=== PATIENT | male | born 1970 | race Caucasian/White ===

== ENCOUNTER 2021-03-15 06:14 | Observation (INO) ==
[2021-03-15] MEDS ORDERED: Naloxone 0.4 MG/ML INJ IVP PRN (09:16)
[2021-03-15] MEDS ORDERED: *HR* HYDROcodone/Acet 5/325 mg TABLET PO PRN (09:16)
[2021-03-15] MEDS ORDERED: Ondansetron 4 MG/2 ML VIAL IVP PRN (09:16)
[2021-03-15] MEDS ORDERED: Haloperidol Lactate 5 MG/ML VIAL IVP PRN (09:19)
[2021-03-15 09:51] LABS: Basophils % 0.6 %; Mean Platelet Volume 10.9 fL (9.4-12.4)
[2021-03-15 09:53] LABS: Eosinophils # 0.1 K/mcL (0.0-0.6); Eosinophils % 1.5 %; Hematocrit 44.7 % (37.5-50.1); Immature Granulocytes % 0.5 % (0-4); Immature Platelets 5.9 % (1.1-6.1); Lymphocytes # 1.5 K/mcL (0.6-4.6); Lymphocytes % 22.4 %; Mean Corpuscular HGB Conc 33.6 g/dL (31.6-35.5); Mean Corpuscular Hemoglobin 30.9 pg (28.0-33.3); Monocytes # 0.5 K/mcL (0.0-1.3); Monocytes % 7.8 %; Neutrophils # 4.4 K/mcL (1.6-8.9); Platelet Count 146 K/mcL (140-400); Red Blood Count 4.86 M/mcL (4.19-5.50); Red Cell Distribution Width 12.5 % (11.5-14.5); Segmented Neutrophils % 67.2 %; White Blood Count 6.6 K/mcL (4.3-11.1)
[2021-03-15 10:20] LABS: INR 1.2; Prothrombin Time 13.5 Seconds (9.4-12.1)
[2021-03-15 10:23] LABS: Alanine Aminotransferase 24 Units/L (7-52); Albumin 4.5 g/dL (3.5-5.7); Albumin/Globulin Ratio 1.6 (1.1-2.2); Alkaline Phosphatase 42 Units/L (34-104); Aspartate Amino Transferase 41 Units/L (13-39); BUN/Creatinine Ratio 11 (6-26); Bilirubin,Total 1.7 mg/dL (0.3-1.0); Blood Urea Nitrogen 12 mg/dL (6-20); Calcium 9.1 mg/dL (8.6-10.3); Carbon Dioxide 22 mEq/L (23-29); Chloride 105 mEq/L (98-107); Globulin 2.8 g/dL (2.4-3.5); Glucose 119 mg/dL (70-105); Osmolality,Calculated 287 (280-300); Phosphorous 3.2 mg/dL (2.7-4.5); Potassium 4.3 mEq/L (3.5-5.1); Sodium 138 mEq/L (136-145); Total Protein 7.3 g/dL (6.4-8.9); Troponin I < 0.03 ng/mL (< 0.04); eGFR For African Americans > 60 (> 60); eGFR For Non-African Americans > 60 (> 60)
[2021-03-15 10:24] LABS: Activated Partial Thrombo Time 20.6 Seconds (26.0-36.0)
[2021-03-15] MEDS: Ringers Solution, Lactated 1,000 ML IVC SCH ×2 (10:43→20:44)
[2021-03-15] MEDS ORDERED: hydrOXYzine pamoate 25 MG CAPSULE PO PRN (13:59)
[2021-03-15] MEDS: Metoprolol XL (24 HR) Succ 25 MG TAB.ER.24H PO SCH (15:18)
[2021-03-15 15:57] LABS: Bilirubin,Urine Negative (Negative); Blood,Urine Negative (Negative); Clarity,Urine Clear (Clear); Color,Urine Light-Yellow (Yellow); Glucose,Urine (UA) Normal (Normal); Ketones,Urine Negative (Negative); Leukocyte Esterase,Urine Negative (Negative); Nitrite,Urine Negative (Negative); Protein,Urine Negative (Neg-Trace); Specific Gravity,Urine 1.011 (1.010-1.025)
[2021-03-15 16:19] LABS: Amphetamine Screen,Urine Positive ng/mL (Cutoff=1000); Barbiturate Screen,Urine Negative ng/mL (Cutoff=200); Benzodiazepines Screen,Urine Negative ng/mL (Cutoff=200); Cannabinoid Screen,Urine Negative ng/mL (Cutoff = 50); Cocaine Screen,Urine Positive ng/mL (Cutoff= 300); Opiate Screen,Urine Negative ng/mL (Cutoff=300); Phencyclidine Screen,Urine Negative ng/mL (Cutoff=25)
[2021-03-15] MEDS: *HR* Heparin 5,000 UNIT/ML VIAL SQ SCH (16:57)
[2021-03-15] MEDS: traZODone 50 MG TABLET PO SCH (20:40)
[2021-03-16] MEDS: *HR* Heparin 5,000 UNIT/ML VIAL SQ SCH ×2 (05:22→16:49)
[2021-03-16] MEDS: Ringers Solution, Lactated 1,000 ML IVC SCH ×2 (09:14→20:00)
[2021-03-16] MEDS: Aspirin 325 MG TABLET PO SCH (14:39)
[2021-03-16] MEDS: Gabapentin 300 MG CAPSULE PO SCH ×2 (14:39→20:01)
[2021-03-16] MEDS: Metoprolol XL (24 HR) Succ 25 MG TAB.ER.24H PO SCH (19:53)
[2021-03-16] MEDS: traZODone 50 MG TABLET PO SCH (20:01)
[2021-03-17 05:11] LABS: Basophils % 0.4 %; Eosinophils # 0.1 K/mcL (0.0-0.6); Eosinophils % 2.6 %; Hematocrit 39.1 % (37.5-50.1); Hemoglobin 13.6 g/dL (12.9-16.9); Immature Granulocytes % 0.2 % (0-4); Lymphocytes # 1.6 K/mcL (0.6-4.6); Lymphocytes % 31.9 %; Mean Corpuscular HGB Conc 34.8 g/dL (31.6-35.5); Mean Corpuscular Hemoglobin 31.3 pg (28.0-33.3); Mean Corpuscular Volume 89.9 fL (83.0-100.0); Mean Platelet Volume 10.1 fL (9.4-12.4); Monocytes # 0.3 K/mcL (0.0-1.3); Monocytes % 6.7 %; Platelet Count 185 K/mcL (140-400); Red Blood Count 4.35 M/mcL (4.19-5.50); Red Cell Distribution Width 12.1 % (11.5-14.5); Segmented Neutrophils % 58.2 %; White Blood Count 5.1 K/mcL (4.3-11.1)
[2021-03-17 05:30] LABS: BUN/Creatinine Ratio 10 (6-26); Blood Urea Nitrogen 10 mg/dL (6-20); Calcium 8.8 mg/dL (8.6-10.3); Carbon Dioxide 27 mEq/L (23-29); Chloride 108 mEq/L (98-107); Glucose 104 mg/dL (70-105); Osmolality,Calculated 291 (280-300); Potassium 3.8 mEq/L (3.5-5.1); Sodium 141 mEq/L (136-145); eGFR For African Americans > 60 (> 60); eGFR For Non-African Americans > 60 (> 60)
[2021-03-17] MEDS: Ringers Solution, Lactated 1,000 ML IVC SCH (05:42)
[2021-03-17] MEDS: *HR* Heparin 5,000 UNIT/ML VIAL SQ SCH (05:42)
[2021-03-17 05:55] LABS: Estimated Average Glucose 126 mg/dl
[2021-03-17] MEDS: Gabapentin 300 MG CAPSULE PO SCH (07:16)
[2021-03-17] MEDS: Aspirin 325 MG TABLET PO SCH (07:16)
[2021-03-17] MEDS ORDERED: Pyridoxine (B-6) 50 MG TABLET PO SCH (09:00)
[2021-03-17 15:19] VITALS: BP 119/85
== END 2021-03-17 15:39 | disposition home or self-care (01) ==
LOC: 3ANU → SUATTDRO 08:58 → 3ANU 23:00
PROVIDERS: ADMIT Internal Medicine; ATTEND Family Medicine

== ENCOUNTER 2021-12-31 13:08 | Inpatient (IN) ==
[2021-12-31] MEDS ORDERED: Naloxone 0.4 MG/ML INJ IVP PRN (17:59)
[2021-12-31] MEDS ORDERED: Melatonin 3 MG TABLET PO PRN (17:59)
[2021-12-31] MEDS ORDERED: Mag Hydrox/Al Hydrox/Simeth 30 ML UDC PO PRN (17:59)
[2021-12-31] MEDS ORDERED: Ondansetron 4 MG/2 ML VIAL IVP PRN (17:59)
[2021-12-31] MEDS ORDERED: Perflutren Lipid Microsphere 1.3 ML in 0.9 % Sodium Chloride 8.7 ML IVP PRN (18:09)
[2021-12-31] MEDS ORDERED: Metoprolol XL (24 HR) Succ 50 MG TAB.ER.24H PO SCH (18:15)
[2021-12-31] MEDS ORDERED: Dextrose 4 GM Chewable Tablets PO PRN ×2 (18:21)
[2021-12-31] MEDS ORDERED: *HR* Dextrose 50 % in Water (Syg) 50 ML SYRINGE IVP PRN (18:21)
[2021-12-31] MEDS ORDERED: D5% in Water 1,000 ML IVC PRN (18:21)
[2021-12-31] MEDS: DilTIAZem 50 MG/50 ML IV.SOLN IVC SCH (19:00)
[2021-12-31] MEDS ORDERED: Apixaban 5 MG TABLET PO SCH (21:00)
[2021-12-31] MEDS ORDERED: Ipratropium/Albuterol Neb 3 ML ONE (22:52)
[2021-12-31] MEDS ORDERED: Ipratropium/Albuterol Neb 3 ML IH PRN (22:55)
[2021-12-31] MEDS: Albumin 25% 25gram/100mL 25 GM/100 ML IV.SOLN IVPB SCH (23:34)
[2022-01-01 02:20] LABS: Basophils % 0.1 %; Eosinophils % 0.1 %; Hematocrit 40.9 % (37.5-50.1); Hemoglobin 13.3 g/dL (12.9-16.9); Immature Granulocytes % 0.7 % (0-4); Lymphocytes # 0.6 K/mcL (0.6-4.6); Lymphocytes % 5.5 %; Mean Corpuscular HGB Conc 32.5 g/dL (31.6-35.5); Mean Corpuscular Hemoglobin 28.4 pg (28.0-33.3); Mean Corpuscular Volume 87.4 fL (83.0-100.0); Mean Platelet Volume 10.5 fL (9.4-12.4); Monocytes # 1.1 K/mcL (0.0-1.3); Monocytes % 10.8 %; Neutrophils # 8.7 K/mcL (1.6-8.9); Platelet Count 307 K/mcL (140-400); Red Blood Count 4.68 M/mcL (4.19-5.50); Red Cell Distribution Width 15.9 % (11.5-14.5); Segmented Neutrophils % 82.8 %; White Blood Count 10.4 K/mcL (4.3-11.1)
[2022-01-01 02:30] LABS: Albumin 4.2 g/dL (3.5-5.7); Albumin/Globulin Ratio 1.7 (1.1-2.2); Bilirubin,Indirect 2.8 mg/dL (0.0-1.0); Bilirubin,Total 4.8 mg/dL (0.3-1.0); Globulin 2.5 g/dL (2.4-3.5); Total Protein 6.7 g/dL (6.4-8.9)
[2022-01-01 02:36] LABS: Calcium 9.5 mg/dL (8.6-10.3); Magnesium 2.2 mg/dL (1.6-2.6); Phosphorous 5.7 mg/dL (2.7-4.5); Troponin I 0.05 ng/mL (< 0.04)
[2022-01-01 03:00] LABS: Prothrombin Time 55.5 Seconds (9.4-12.1)
[2022-01-01] MEDS: DilTIAZem 50 MG/50 ML IV.SOLN IVC SCH (04:10)
[2022-01-01] MEDS: Insulin LISPRO 300 UNITS/3 ML VIAL SUBQ SCH ×3 (07:54→15:55)
[2022-01-01] MEDS: Albumin 25% 25gram/100mL 25 GM/100 ML IV.SOLN IVPB SCH ×2 (08:16→15:54)
[2022-01-01] MEDS: Metoprolol XL (24 HR) Succ 50 MG TAB.ER.24H PO SCH ×2 (08:17→20:54)
[2022-01-01 15:27] LABS: Complement C3 82 mg/dL (87-200)
[2022-01-01 15:28] LABS: Albumin 4.3 g/dL (3.5-5.7); Calcium 9.4 mg/dL (8.6-10.3); Phosphorous 5.4 mg/dL (2.7-4.5); Potassium 4.7 mEq/L (3.5-5.1)
[2022-01-01] MEDS: Gabapentin 300 MG CAPSULE PO SCH ×2 (15:54→20:54)
[2022-01-01 15:57] VITALS: TEMP 98.2
[2022-01-01] MEDS ORDERED: Furosemide 40 MG/4 ML VIAL IVP SCH (17:00)
[2022-01-01 17:24] LABS: Bacteria,Urine Few per hpf (None-Few); Bilirubin,Urine Negative (Negative); Blood,Urine Small (Negative); Clarity,Urine Turbid (Clear); Color,Urine Dark-Yellow (Yellow); Glucose,Urine (UA) Normal (Normal); Hyaline Casts,Urine Many per lpf (None Seen); Ketones,Urine Trace mg/dL (Negative); Leukocyte Esterase,Urine Small (Negative); Mucus,Urine Few per lpf (None-Few); Nitrite,Urine Negative (Negative); PH,Urine 5.5 pH Units (5.0-8.0); Protein,Urine 100 mg/dL (Neg-Trace); Specific Gravity,Urine 1.022 (1.010-1.025); Squamous Epithelial Cell,Urine Few per hpf (None-Few)
[2022-01-01] MEDS ORDERED: Lactulose 200 GM, Sodium Chloride IRRigation 700 ML RC ONE (18:50)
[2022-01-01] MEDS ORDERED: 0.9 % Sodium Chloride 1,000 ML ONE (18:51)
[2022-01-01] MEDS ORDERED: Norepinephrine 4 MG/254 ML IV.SOLN IVC ONE (18:58)
[2022-01-01 19:22] LABS: ABG Base Excess -10 mEq/L (-2 to 3); ABG HCO3 13 mEq/L (21-27); ABG Oxygen Saturation 100 % (95-98); ABG PCO2 23 mmHg (35-45); ABG PH 7.37 pH Units (7.32-7.45); ABG PO2 207 mmHg (85-104); ABG TCO2 14 mEq/L (20-26)
[2022-01-01] MEDS ORDERED: Furosemide 40 MG/4 ML VIAL IVP ONE (19:29)
[2022-01-01] MEDS ORDERED: Norepinephrine 4 MG/254 ML IV.SOLN IVC SCH (19:30)
[2022-01-01 19:31] VITALS: O2SAT 95
[2022-01-01] MEDS ORDERED: traZODone 50 MG TABLET PO PRN (21:00)
[2022-01-01 21:12] VITALS: BP 84/66; PULSE 95
[2022-01-01 21:16] LABS: Amylase 38 Units/L (29-103); Lipase 93 Units/L (11-82)
[2022-01-01 21:44] LABS: Influenza A PCR Negative (Negative); Influenza B PCR Negative (Negative); Resp. Syncytial Virus PCR Negative (Negative)
[2022-01-01 21:48] LABS: SARS-CoV-2 by PCR (In House) Positive (Negative)
[2022-01-01 22:29] LABS: Acetaminophen < 10 mcg/mL (10-20); Salicylate < 2.5 mg/dL (15.0-30.0)
[2022-01-01] MEDS ORDERED: *HR* Norepinephrine 4 MG/4 ML VIAL IVC ONE (22:55)
[2022-01-01 23:47] LABS: Hepatitis B Surface Antigen Nonreactive (Nonreactive)
[2022-01-02 00:17] LABS: Hepatitis B Core IgM Nonreactive (Nonreactive); Hepatitis C Virus Antibody Nonreactive (Nonreactive)
[2022-01-02 00:18] LABS: Hepatitis A Antibody IgM Nonreactive (Nonreactive)
[2022-01-02] MEDS ORDERED: Pyridoxine (B-6) 50 MG TABLET PO SCH (09:00)
[2022-01-02] MEDS ORDERED: Piperacillin/Tazobactam 3.375 GM in 0.9 % Sodium Chloride Mini Bag 100 ML IVPB SCH (22:00)
[2022-01-05 10:27] LABS: ANA IgG by ELISA NONE DETECTED (None Detected)
[2022-01-05 12:37] LABS: Beta Globulin (PEP) 1.01 g/dL (0.48-1.10)
[2022-01-05 13:54] LABS: IFE Reflexed NOT DONE
[2022-01-05 18:56] LABS: ANCA IFA Titer <1:20 (<1:20)
[2022-01-06 10:36] LABS: ANCA IFA Pattern NONE DETECTED (None Detected); Serine Protease-3 Antibody 7 AU/mL (0-19)
== END 2022-01-01 22:06 | disposition short-term general hospital (02) | DRG 280 ==
LOC: 2NNU → SUATTDRO 17:59 → ICNU 01-01 20:45
PROVIDERS: ADMIT Internal Medicine; ATTEND Internal Medicine